=== PATIENT | male | born 1985 | race Two or more races ===

== ENCOUNTER 2021-08-01 19:44 | Emergency (ER) | payer BC, OTHER ==
[2021-08-01 19:51] VITALS: BP 169/95; PULSE 81; RESP 18; TEMP 98.3
--- NOTE | 2021-08-01 19:59 | ED ---
General Adult HPI - General Chief complaint: Upper Respiratory Infection Stated complaint: Cough,congestion Time Seen by Provider: 08/01/21 19:45 Source: patient Mode of arrival: ambulatory Limitations: no limitations - History of Present Illness Initial comments: Patient presents to the ED complaining of having a cough for the past 2 weeks or so. Patient states that his cough was initially productive, but it has now become more of a dry cough. Patient states that his coughing has been keeping him up at night. Patient states that he also had a bout of laryngitis when his symptoms began, but his voice has since returned back to normal. Patient denies having any pain, fever or chills, headache, otalgia, sore throat, chest pain or pressure, hemoptysis, dyspnea, dizziness, abdominal pain, nausea/vomiting/diarrhea, dysuria or urinary symptoms, or any other symptoms or complaints. Patient since that he is fully vaccinated for Covid. - Related Data Previous Rx's Medication Instructions Recorded Azithromycin [Zithromax Z-pack (6 250 mg PO DIRECTED #6 tab 08/01/21 tabs)] Benzonatate [Tessalon Perles] 100 mg PO TID PRN #15 cap 08/01/21 Allergies Allergy/AdvReac Type Severity Reaction Status Date / Time No Known Allergies Allergy Verified 08/01/21 19:51 Review of Systems ROS Statement: Those systems with pertinent positive or pertinent negative responses have been documented in the HPI. ROS Other: All systems not noted in ROS Statement are negative. Past Medical History Past Medical History: Thyroid Disorder History of Any Multi-Drug Resistant Organisms: None Reported Past Surgical History: No Surgical Hx Reported Past Psychological History: No Psychological Hx Reported Smoking Status: Vaper Past Alcohol Use History: None Reported Past Drug Use History: None Reported General Exam Limitations: no limitations General appearance: alert, in no apparent distress Head exam: Present: atraumatic, normocephalic Eye exam: Present: normal appearance, EOMI ENT exam: Present: normal oropharynx, mucous membranes moist Neck exam: Present: other (Trachea is in midline). Absent: tenderness Respiratory exam: Present: normal lung sounds bilaterally. Absent: respiratory distress, wheezes, rales, rhonchi, stridor Cardiovascular Exam: Present: regular rate, normal rhythm, normal heart sounds, other (Normal radial pulses bilaterally) GI/Abdominal exam: Present: soft. Absent: distended, tenderness, guarding Extremities exam: Absent: pedal edema Neurological exam: Present: alert, oriented X3. Absent: motor sensory deficit Psychiatric exam: Present: normal affect, normal mood Skin exam: Present: warm, dry, intact, normal color Course Vital Signs 08/01/21 19:49 Temperature 98.3 F Pulse Rate 81 Respiratory 18 Rate Blood Pressure 169/95 O2 Sat by Pulse 95 Oximetry Medical Decision Making - Medical Decision Making Patient's viral studies are all negative. Patient's chest x-ray is unremarkable. Patient is breathing comfortably with clear breath sounds bilaterally and a normal room air oxygen saturation. I suspect that the patient's symptoms are likely secondary to acute bronchitis. Given the prolonged course of the patient's symptoms, will treat the patient with a course of antibiotics. Patient will also be prescribed antitussive medication. Patient was counseled about acute bronchitis, and he was clearly explained return and follow-up instructions. Patient was instructed to follow up closely with his primary care provider. Patient feels comfortable with this plan. - Lab Data Lab Results 08/01/21 Range/Units 19:53 Influenza Type A (PCR) Not Detected (Not Detectd) Influenza Type B (PCR) Not Detected (Not Detectd) RSV (PCR) Not Detected (Not Detectd) SARS-CoV-2 (PCR) Not Detected (Not Detectd) - Radiology Data Chest x-ray: Normal chest. Disposition Clinical Impression: Acute bronchitis Disposition: HOME SELF-CARE Condition: Stable Instructions (If sedation given, give patient instructions): Acute Bronchitis (ED) Additional Instructions: Return to the ER immediately should you develop shortness of breath/trouble breathing, chest pain, a high fever, feeling dizzy or faint, or new or worsening symptoms. Follow up closely with your primary care provider. Prescriptions: Benzonatate [Tessalon Perles] 100 mg PO TID PRN #15 cap PRN Reason: Cough Azithromycin [Zithromax Z-pack (6 tabs)] 250 mg PO DIRECTED #6 tab Is patient prescribed a controlled substance at d/c from ED?: No Referrals: None,Stated [Primary Care Provider] - 1-2 days Dale Tarango MD [REFERRING] - 1-2 days Time of Disposition: 21:06
--- NOTE | 2021-08-01 20:14 | XR ---
EXAMINATION TYPE: XR chest 2V DATE OF EXAM: 08/01/2021 COMPARISON: NONE HISTORY: Cough and congestion TECHNIQUE: 2 views FINDINGS: Heart and mediastinum are normal. Lungs are clear. Diaphragm is normal. Bony thorax appears normal IMPRESSION: Normal chest.
== END 2021-08-01 21:13 | disposition home or self-care (01) ==
LOC: EC 19:44
DX: J20.9 Acute bronchitis, unspecified (principal); F17.209 Nicotine dependence, unspecified, with unspecified nicotine-induced disorders; Z20.822 Contact with and (suspected) exposure to COVID-19
CPT/HCPCS: 71046; 87636; 99284

== ENCOUNTER 2024-08-12 08:48 | Emergency (ER) | payer OTHER ==
[2024-08-12 08:54] VITALS: TEMP 97.8
[2024-08-12] MEDS: SODIUM CHLORIDE 0.9% 1,000 ML IV ONE (09:32)
[2024-08-12] MEDS: KETOROLAC 15 MG/ML 1 ML VIAL IVP STA (09:33)
[2024-08-12] MEDS: METOCLOPRAMIDE 5 MG/ML 2 ML VIAL IVP STA (09:34)
[2024-08-12] MEDS: LIDOCAINE VISCOUS 2% 15 ML CUP PO ONE (09:36)
[2024-08-12] MEDS: MAG HYDROX/AL HYDROX/SIMETH 30 ML CUP PO STA (09:36)
--- NOTE | 2024-08-12 09:36 | ED ---
Abdominal Pain HPI - General Chief Complaint: Abdominal Pain Stated Complaint: abd pain Time Seen by Provider: 08/12/24 08:54 Source: patient, RN notes reviewed Mode of arrival: ambulatory Limitations: no limitations - History of Present Illness Initial Comments: 39-year-old male presents emergency department chief complaint of epigastric abdominal pain. Patient states that symptoms started around 2 AM states have not alleviated. Patient states normally he has this pain and goes away states he has been worked up for gallbladder disease and states his PCP told him that this is most likely related to his gallbladder he had a ultrasound which did not identify much but he is scheduled for HIDA scan had to be canceled secondary to shingles. Patient states that pain is constant nonradiating denies any upper chest pain no prior cardiac disease no prior abdominal surgeries - Related Data Home Medications Medication Instructions Recorded Confirmed Thyroid (Amharic Med Unknown) 100 mg PO DAILY 06/05/24 06/05/24 Allergies Allergy/AdvReac Type Severity Reaction Status Date / Time No Known Allergies Allergy Verified 08/12/24 08:54 Review of Systems ROS Statement: Those systems with pertinent positive or pertinent negative responses have been documented in the HPI. ROS Other: All systems not noted in ROS Statement are negative. 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 Absent: respiratory distress, wheezes, rales, rhonchi, stridor Cardiovascular Exam: Present: regular rate, normal rhythm, normal heart sounds. Absent: systolic murmur, diastolic murmur, rubs, gallop, clicks GI/Abdominal exam: Present: soft, tenderness (Epigastric), normal bowel sounds. Absent: distended, guarding, rebound, rigid Back exam: Absent: CVA tenderness (R), CVA tenderness (L) Course Vital Signs 08/12/24 08/12/24 08:52 10:56 Temperature 97.8 F Pulse Rate 65 68 Respiratory 20 18 Rate Blood Pressure 167/98 138/76 O2 Sat by Pulse 99 98 Oximetry Medical Decision Making - Medical Decision Making Was pt. sent in by a medical professional or institution (, [facility], [employer] UP HEL[employer], urgent care, hospital, or [place] health care facility...) When possible be specific @ -No Did you speak to anyone other than the patient for history (EMS, parent, family, police, friend...)? What history was obtained from this source @ -No Did you review nursing and triage notes (agree or disagree)? Why? @ -I reviewed and agree with nursing and triage notes Were old charts reviewed (outside hosp., previous admission, EMS record, old EKG, old radiological studies, urgent care reports/EKG's, [place] health care facility records)? Report findings @ -No old charts were reviewed Differential Diagnosis (chest pain, altered mental status, abdominal pain women, abdominal pain men, vaginal bleeding, weakness, fever, dyspnea, syncope, headache, dizziness, GI bleed, back pain, seizure, CVA, palpatations, mental health, musculoskeletal)? @ -Differential Abdominal Pain Men: Appendicitis, cholecystitis, diverticulosis, ischemic bowel, pancreatitis, hepatitis, UTI, gastroenteritis, AAA, incarcerated hernia, bowel obstruction, constipation, inflammatory bowel, hepatitis, peptic ulcer disease, splenic infarction, perforated viscus, testicular torsion, this is not meant to be an all-inclusive list EKG interpreted by me (3pts min.). @ -As above X-rays interpreted by me (1pt min.). @ -None done CT interpreted by me (1pt min.). @ -None done U/S interpreted by me (1pt. min.). @ -Ultrasound gallbladder showing cholelithiasis no evidence of acute cholecystitis What testing was considered but not performed or refused? (CT, X-rays, U/S, labs)? Why? @ -None What meds were considered but not given or refused? Why? @ -None Did you discuss the management of the patient with other professionals (professionals i.e. [employer] De [place], [employer] HELPER, lab, RT, psych nurse, social and political studies professor, civil lawyer, teacher, identification officer, disease case manager)? Give summary @ -No Was smoking cessation discussed for >3mins.? @ -No Was critical care preformed (if so, how long)? @ -No Were there social determinants of health that impacted care today? How? (Homelessness, low income, unemployed, alcoholism, drug addiction, transportation, low edu. Level, literacy, decrease access to med. care, custodial, rehab)? @ -No Was there de-escalation of care discussed even if they declined (Discuss DNR or withdrawal of care, Hospice)? DNR status @ -No What co-morbidities impacted this encounter? (DM, HTN, Smoking, COPD, CAD, Cancer, CVA, ARF, Chemo, Hep., AIDS, mental health diagnosis, sleep apnea, morbid obesity)? @ -None Was patient admitted / discharged? Hospital course, mention meds given and route, prescriptions, significant lab abnormalities, going to OR and other pertinent info. @ -Discharge patient is currently symptom-free laboratory studies unremarkable patient does have gallstones noted. Patient will follow-up with surgeon return parameters discussed Undiagnosed new problem with uncertain prognosis? @ -No Drug Therapy requiring intensive monitoring for toxicity (Heparin, Nitro, Insulin, Cardizem)? @ -No Were any procedures done? @ -No Diagnosis/symptom? @ -Cholelithiasis, abdominal pain Acute, or Chronic, or Acute on Chronic? @ -[Acute Uncomplicated (without systemic symptoms) or Complicated (systemic symptoms)? @ -Uncomplicated Side effects of treatment? @ -No Exacerbation, Progression, or Severe Exacerbation? @ -No Poses a threat to life or bodily function? How? (Chest pain, USA, MS, pneumonia, PE, COPD, DKA, ARF, appy, cholecystitis, CVA, Diverticulitis, Homicidal, Suicidal, threat to staff... and all critical care pts) @ -No - Lab Data Result diagrams: 08/12/24 09:26 08/12/24 09:26 Lab Results 08/12/24 08/12/24 08/12/24 Range/Units 09:26 09:26 09:26 WBC 8.63 (4.50-10.00) 10*3/uL RBC 5.36 (4.40-5.60) 10*6/uL Hgb 16.0 (13.0-17.0) g/dL Hct 43.9 (39.6-50.0) % MCV 81.9 (80.0-97.0) fL MCH 29.9 (27.0-32.0) pg MCHC 36.4 (32.0-37.0) g/dL Plt Count 243 (140-440) 10*3/uL MPV 9.1 L (9.5-12.2) fL Immature Gran % (Auto) 0.1 % Neutrophils % 74.8 % Lymphocytes % 18.9 % Monocytes % 5.1 % Eosinophils % 0.6 % Basophils % 0.5 % Immature Gran # 0.01 (0.00-0.04) 10*3/uL Neutrophils # 6.46 (1.80-7.70) 10*3/uL Lymphocytes # 1.63 (0.90-5.00) 10*3/uL Monocytes # 0.44 (0.20-1.00) 10*3/uL Eosinophils # 0.05 (0.04-0.35) 10*3/uL Basophils # 0.04 (0.00-0.10) 10*3/uL Sodium 137 (137-145) mmol/L Potassium 4.3 (3.5-5.1) mmol/L Chloride 99 (98-107) mmol/L Carbon Dioxide 27 (22-30) mmol/L Anion Gap 11 mmol/L BUN 11 (9-20) mg/dL Creatinine 0.98 (0.66-1.25) mg/dL Est GFR (CKD-EPI)AfAm >90 (>60 ml/min/1.73 sqM) Est GFR (CKD-EPI)NonAf >90 (>60 ml/min/1.73 sqM) Glucose 129 H (74-99) mg/dL Plasma Lactic Acid Rohan 2.6 H* (0.7-2.0) mmol/L Calcium 9.9 (8.4-10.2) mg/dL Total Bilirubin 1.0 (0.2-1.3) mg/dL AST 24 (17-59) U/L ALT 32 (4-49) U/L Alkaline Phosphatase 103 (38-126) U/L Troponin I (0.000-0.034) ng/mL Total Protein 7.8 (6.3-8.2) g/dL Albumin 4.8 (3.5-5.0) g/dL Amylase 62 (30-110) U/L Lipase 111 (23-300) U/L 08/12/24 Range/Units 09:26 WBC (4.50-10.00) 10*3/uL RBC (4.40-5.60) 10*6/uL Hgb (13.0-17.0) g/dL Hct (39.6-50.0) % MCV (80.0-97.0) fL MCH (27.0-32.0) pg MCHC (32.0-37.0) g/dL Plt Count (140-440) 10*3/uL MPV (9.5-12.2) fL Immature Gran % (Auto) % Neutrophils % % Lymphocytes % % Monocytes % % Eosinophils % % Basophils % % Immature Gran # (0.00-0.04) 10*3/uL Neutrophils # (1.80-7.70) 10*3/uL Lymphocytes # (0.90-5.00) 10*3/uL Monocytes # (0.20-1.00) 10*3/uL Eosinophils # (0.04-0.35) 10*3/uL Basophils # (0.00-0.10) 10*3/uL Sodium (137-145) mmol/L Potassium (3.5-5.1) mmol/L Chloride (98-107) mmol/L Carbon Dioxide (22-30) mmol/L Anion Gap mmol/L BUN (9-20) mg/dL Creatinine (0.66-1.25) mg/dL Est GFR (CKD-EPI)AfAm (>60 ml/min/1.73 sqM) Est GFR (CKD-EPI)NonAf (>60 ml/min/1.73 sqM) Glucose (74-99) mg/dL Plasma Lactic Acid Rohan (0.7-2.0) mmol/L Calcium (8.4-10.2) mg/dL Total Bilirubin (0.2-1.3) mg/dL AST (17-59) U/L ALT (4-49) U/L Alkaline Phosphatase (38-126) U/L Troponin I <0.012 (0.000-0.034) ng/mL Total Protein (6.3-8.2) g/dL Albumin (3.5-5.0) g/dL Amylase (30-110) U/L Lipase (23-300) U/L - EKG Data -: EKG Interpreted by [place] EKG Comments: EKG performed at 9: 50 sinus rhythm with rate of 69 UT 166 QRS 101 QT/QTc 391/409 Disposition Clinical Impression: Abdominal pain, Cholelithiasis Disposition: HOME SELF-CARE Condition: Stable Instructions (If sedation given, give patient instructions): Abdominal Pain (ED) Additional Instructions: Please return to the Emergency Department if symptoms worsen or any other c oncerns. Is patient prescribed a controlled substance at d/c from ED?: No Referrals: Konrad Wilson MD [Primary Care Provider] - 1-2 days Renetta Sparks DO [Doctor of Osteopathic Medicine] - 1-2 days Time of Disposition: 11:19
[2024-08-12 09:41] LABS: Basophils # (A) 0.04 10*3/uL (0.00-0.10); Basophils % (A) 0.5 %; Eosinophils # (A) 0.05 10*3/uL (0.04-0.35); Eosinophils % (A) 0.6 %; HCT 43.9 % (39.6-50.0); Lymphocytes # (A) 1.63 10*3/uL (0.90-5.00); Lymphocytes % (A) 18.9 %; MCH 29.9 pg (27.0-32.0); MCHC 36.4 g/dL (32.0-37.0); MCV 81.9 fL (80.0-97.0); Mean Platelet Volume 9.1 fL (9.5-12.2); Monocytes # (A) 0.44 10*3/uL (0.20-1.00); Monocytes % (A) 5.1 %; Neutrophils # (A) 6.46 10*3/uL (1.80-7.70); Neutrophils % (A) 74.8 %; Platelet Count 243 10*3/uL (140-440); RBC 5.36 10*6/uL (4.40-5.60); RDW 13.1 % (11.5-14.5); WBC 8.63 10*3/uL (4.50-10.00)
[2024-08-12 09:53] LABS: ALT 32 U/L (4-49); AST 24 U/L (17-59); African American GFR (CKD) >90 (>60 ml/min/1.73 sqM); Albumin 4.8 g/dL (3.5-5.0); Alkaline Phosphatase 103 U/L (38-126); Amylase 62 U/L (30-110); Anion Gap 11 mmol/L; Blood Urea Nitrogen 11 mg/dL (9-20); Calcium 9.9 mg/dL (8.4-10.2); Carbon Dioxide 27 mmol/L (22-30); Chloride 99 mmol/L (98-107); Glucose 129 mg/dL (74-99); Lipase 111 U/L (23-300); Non-African American GFR(CKD) >90 (>60 ml/min/1.73 sqM); Potassium 4.3 mmol/L (3.5-5.1); Sodium 137 mmol/L (137-145); Total Protein 7.8 g/dL (6.3-8.2)
[2024-08-12 10:57] VITALS: BP 138/76; PULSE 68; RESP 18
--- NOTE | 2024-08-12 10:58 | US ---
EXAMINATION TYPE: US gallbladder DATE OF EXAM: 08/12/2024 COMPARISON: Ultrasound gallbladder 06/05/2024, CT abdomen pelvis 06/05/2024 CLINICAL INDICATION: Male, 39 years old with history of pain; Hx acute quinn 06/14/24 TECHNIQUE: Grayscale and color Doppler imaging of the right upper quadrant was performed. FINDINGS: EXAM MEASUREMENTS: Liver Length: 18.8 cm Gallbladder Wall: 0.2 cm CBD: 0.5 cm Right Kidney: 11.7x4.5x5.9 cm SALES REPRESENTATIVE MEATS NOTES: Pancreas: mostly obscured by bowel gas Liver: hepatomegaly, fatty liver, focal sparing adjacent to GB Gallbladder: wall now measures wnl, stones again seen Evidence for sonographic Amaya's sign: No CBD: wnl Right Kidney: wnl exam limited by bowel gas Mild enlargement of liver with diffuse increased echogenicity. There is focal region of sparing adjac ent to gallbladder. Gallbladder demonstrates no wall thickening or surrounding fluid. Gallstones iden tified. Negative sonographic Amaya sign. The pancreas is obscured by overlying bowel gas. Common abundio e duct is within normal limits. Right kidney demonstrates no hydronephrosis, shadowing calculus or ma ss. IMPRESSION: 1. No ultrasound evidence for acute process. 2. Cholelithiasis without ultrasound evidence for acute cholecystitis. 3. Mild hepatomegaly with fatty infiltration. Focal fatty sparing adjacent to the gallbladder. [facility], , 08/12/2024 10:56 AM
== END 2024-08-12 11:52 | disposition home or self-care (01) ==
LOC: EC 08:48
DX: K80.20 Calculus of gallbladder without cholecystitis without obstruction (principal); F17.290 Nicotine dependence, other tobacco product, uncomplicated
CPT/HCPCS: 36415; 93005; 80053; 82150; 83605; 83690; 84484; 85025; 76705; 99284; 96374; 96375; 96361; J2765; J1885